=== PATIENT | male | born 1950 | race African-American/Black ===

== ENCOUNTER 2019-01-22 10:42 | Emergency (ER) | payer MEDICARE, MEDICAID ==
[2019-01-22] MEDS ORDERED: Cephalexin 500 MG CAP ONE (11:02)
[2019-01-22] MEDS ORDERED: Doxycycline 100 MG CAP PO SCH (11:45)
== END 2019-01-22 11:45 | disposition home or self-care (01) ==
LOC: BURERS 10:42
DX: R21 Rash and other nonspecific skin eruption (principal); Z71.6 Tobacco abuse counseling; G47.00 Insomnia, unspecified; F17.210 Nicotine dependence, cigarettes, uncomplicated; E78.5 Hyperlipidemia, unspecified; E78.00 Pure hypercholesterolemia, unspecified; I10 Essential (primary) hypertension; Z79.899 Other long term (current) drug therapy
CPT/HCPCS: 99406

== ENCOUNTER 2019-12-29 11:50 | Emergency (ER) | payer MEDICARE, MEDICAID | END 2019-12-29 12:09 | disposition home or self-care (01) | LOC: BURERS 11:50 | DX: M54.5 Low back pain (principal); Z76.0 Encounter for issue of repeat prescription; E78.5 Hyperlipidemia, unspecified; I10 Essential (primary) hypertension; F17.210 Nicotine dependence, cigarettes, uncomplicated; Z79.899 Other long term (current) drug therapy | CPT/HCPCS: 72100; 99281 ==

== ENCOUNTER 2019-12-29 12:27 | Outpatient (CLI) | payer MEDICARE, MEDICAID ==
--- NOTE | 2019-12-29 13:58 | RAD ---
LUMBAR SPINE 3 VIEWS: HISTORY: Low back pain. FINDINGS: The vertebral bodies are normal in height. Degenerative osteophytes are seen along the course of the spine, more prominent along the left side of the lower lumbar spine. Mild degenerative disk narrowi ng is seen along the course of the spine. There is a very minimal spondylolisthesis of L4 on L5. Th ere are degenerative facet changes. Pedicles are intact. IMPRESSION: Moderate arthritic changes of the spine. POS: [facility]
== END 2019-12-29 12:28 | disposition home or self-care (01) ==
LOC: BURRAD 12:27
PROVIDERS: ATTEND Family Medicine
DX: M54.5 Low back pain (principal); M47.816 Spondylosis without myelopathy or radiculopathy, lumbar region
CPT/HCPCS: 72100

== ENCOUNTER 2021-11-03 04:40 | Emergency (ER) | payer MEDICARE, OTHER ==
[2021-11-03] MEDS ORDERED: Acetaminophen 500 MG TAB ONE (05:31)
[2021-11-03 06:00] LABS: #Basophils 0.1 thou/uL (0.0-0.2); #Eosinphils 0.6 thou/uL (0.0-0.7); #Monocytes 0.7 thou/uL (0.11-0.59); %Basophils 0.9 % (0.0-1.0); %Eosinophils 5.1 % (0.0-10.0); %Lymphocytes 23.9 % (21.0-51.0); %Monocytes 5.4 % (0.0-10.0); %Neutrophils 64.7 % (42.0-75.0); Hemoglobin 15.3 g/dL (14.0-18.0); Mean Corpuscular HGB CONC 34.2 g/dL (32.0-36.0); Mean Corpuscular Hemoglobin 31.6 pg (27.0-31.0); Mean Corpuscular Volume 92.6 fL (78.0-98.0); Platelet Count 301 thou/uL (130-400); RBC Distribution Width 12.7 % (11.5-14.5); Red Blood Cell (RBC) Count 4.83 mill/uL (4.70-6.10); White Blood Cell (WBC) Count 12.4 thou/uL (4.8-10.8)
[2021-11-03 06:15] LABS: Anion Gap 16 mmol/L (10-20); BUN (Urea Nitrogen) 14 mg/dL (8.4-25.7); Calc. Creatinine Clearance 0 mL/min (70-130); Calcium 9.8 mg/dL (7.8-10.44); Carbon Dioxide 26 mmol/L (23-31); Chloride 100 mmol/L (98-107); Glucose 110 mg/dL (80-115); Potassium 3.6 mmol/L (3.5-5.1); Sodium 138 mmol/L (136-145); Uric Acid 8.5 mg/dL (3.5-7.2)
== END 2021-11-03 06:49 | disposition home or self-care (01) ==
LOC: BURERS 04:40
DX: M17.11 Unilateral primary osteoarthritis, right knee (principal); E78.5 Hyperlipidemia, unspecified; E78.00 Pure hypercholesterolemia, unspecified; I10 Essential (primary) hypertension; F17.210 Nicotine dependence, cigarettes, uncomplicated; Z79.899 Other long term (current) drug therapy
CPT/HCPCS: 36415; 80048; 84550; 85025